=== PATIENT | male | born 1950 | race Caucasian/White ===

== ENCOUNTER → 2017-03-31 | Outpatient (CLI) | payer OTHER ==
--- NOTE | 2017-03-31 10:01 | DIAGNOSTIC IMAGING REPORT ---
KIDNEY (ABDOMEN) WITHOUT HISTORY: 66 years-old Male LT KIDNEY MASS follow-up study to assess a left renal mass. COMPARISON: No comparison study is available at time of dictation. TECHNIQUE: Multiple axial CT images of the abdomen were obtained without contrast. A dose lowering technique was used consistent with the principals of JONATHAN. FINDINGS: Mild bibasilar atelectasis. Small left Bochdalek hernia. There is no pneumoperitoneum or pneumatosis identified. Imaged inferior cardiac chambers are unremarkable. There are a few low attenuating lesions of the liver, largest of which measures 1.5 cm within segment VIII which suggests a hepatic cyst. No intrahepatic biliary ductal dilation. There are layering gallstones within the gallbladder lumen. No CT evidence of acute cholecystitis. Spleen, pancreas and right adrenal gland are unremarkable. There is an indeterminate soft tissue attenuating nodule of the left adrenal gland, 1.1 x 1.0 cm which may reflect a lipid poor adenoma. 4 mm nonobstructing calculus is seen within the inferior pole right kidney. Mild bilateral perinephric stranding. There is a 4 x 3 x 4 mm calculus of the proximal right ureter just distal to the ureteropelvic junction which does not cause significant obstructive uropathy. There is a low attenuating 1.9 x 1.6 cm lesion of the interpolar left kidney which suggests a cyst. Evaluation however is mildly limited without the use of contrast. No suspicious lesions of the left kidney identified. The aorta is normal in course and caliber with mild atherosclerotic plaquing. No bulky adenopathy identified. Suspected small sliding-type hiatal hernia. There is no bowel obstruction. Moderate colonic diverticulosis. There are nonspecific inflammatory changes of the right lower quadrant mesentery abutting the iliacus musculature as seen on images 231 through 246 of series 3. Soft tissues are unremarkable. Bones appear intact. Remote right-sided rib fractures are noted. Endplate changes of the spine. IMPRESSION: 1. 4 x 3 x 3 mm calculus of the proximal right ureter is present without associated significant obstructive uropathy. Additional 4 mm nonobstructing calculus of the inferior pole right kidney. 2. Ovoid circumscribed low attenuating lesion of the interpolar left kidney measuring up to 1.9 cm suggests renal cyst. No suspicious renal mass lesions identified on this noncontrast study. 3. Nonspecific focal inflammatory changes of the right lower quadrant mesentery, only partially imaged. 4. Colonic diverticulosis without diverticulitis. 5. Cholelithiasis. 6. Soft tissue attenuating lesion of the left adrenal gland, 1.1 cm may reflect a lipid poor adenoma, however is indeterminate. The above report was generated using voice recognition software. It may contain grammatical, syntax or spelling errors. Electronically signed by: Cody Perry M.D. 03/31/2017 10:00 AM Dictated Date/Time: 03/31/2017 9:49 AM
== END | disposition home or self-care (01) ==
LOC: C.CTS 09:20
PROVIDERS: ATTEND Internal Medicine
DX: N20.2 Calculus of kidney with calculus of ureter (principal); N28.89 Other specified disorders of kidney and ureter; K57.30 Diverticulosis of large intestine without perforation or abscess without bleeding

== ENCOUNTER → 2017-04-10 | Outpatient (CLI) | payer OTHER ==
[2017-04-10 09:05] LABS: BLOOD UREA NITROGEN 27 mg/dl (7-18); BUN/CREATININE RATIO 14.9 (10-20); CARBON DIOXIDE 25 mmol/L (21-32); CHLORIDE 106 mmol/L (98-107); CREATININE 1.81 mg/dl (0.60-1.40); GLUCOSE 104 mg/dl (70-99); SODIUM 140 mmol/L (136-145)
== END ==
LOC: C.LABCC 08:17
PROVIDERS: ATTEND Internal Medicine
DX: R94.4 Abnormal results of kidney function studies (principal)

== ENCOUNTER → 2017-04-25 | Outpatient (CLI) | payer OTHER ==
[~2017-04-25] MED LIST: ACET325T96 PO; ASPI81TA28 PO; ATOR-54 PO; BISA10SU5 PR; CRD200 PO; FAMO20TA12 PO; INSU100I SQ; LACTTAB7 PO; LEVO25TA5 PO; LISI-729 PO; LPR50X PO; MOML PO; QUET1TAB32 PO
[2017-04-25 08:44] LABS: BLOOD UREA NITROGEN 25 mg/dl (7-18); CALCIUM 8.6 mg/dl (8.5-10.1); CARBON DIOXIDE 23 mmol/L (21-32); CREATININE 1.52 mg/dl (0.60-1.40); GLUCOSE 80 mg/dl (70-99); POTASSIUM 4.1 mmol/L (3.5-5.1); SODIUM 140 mmol/L (136-145)
== END ==
LOC: C.LABCC 08:23 → EDSTATUS 05-02 11:38
PROVIDERS: ATTEND Internal Medicine
DX: N18.9 Chronic kidney disease, unspecified (principal)

== ENCOUNTER 2017-05-02 11:19 | Observation (INO) | payer OTHER ==
[~2017-05-02] VITALS: Ht 188 cm; Wt 97.6 kg
[~2017-05-02 11:19] MED LIST changes: -ACET325T96 PO; -ASPI81TA28 PO; -ATOR-54 PO; -BISA10SU5 PR; +CEFAZOLIN 1000MG IV PUSH 5 ML IV SCH; -CRD200 PO; -FAMO20TA12 PO; -INSU100I SQ; +LACTATED RINGER'S 1000ML IV SCH; -LACTTAB7 PO; -LEVO25TA5 PO; -LISI-729 PO; -LPR50X PO; -MOML PO; +PATIENT'S ALLERGY INFO NEEDS ENTERED SCH; +PATIENT'S HEIGHT AND/OR WEIGHT NEEDED SCH; -QUET1TAB32 PO
[2017-05-02 11:53] VITALS: BP 147/85; PULSE 47; TEMP 36.7; O2SAT 97; BMI 26.0
[2017-05-02] MEDS ORDERED: CRD200 PO (12:57)
[2017-05-02] MEDS ORDERED: ATOR-54 PO (12:57)
[2017-05-02] MEDS ORDERED: INSU100I SQ (12:57)
[2017-05-02] MEDS ORDERED: BISA10SU5 PR (12:57)
[2017-05-02] MEDS ORDERED: MOML PO (12:57)
[2017-05-02] MEDS ORDERED: LEVO25TA5 PO (12:57)
[2017-05-02] MEDS ORDERED: LISI-729 PO (12:57)
[2017-05-02] MEDS ORDERED: QUET1TAB32 PO (12:57)
[2017-05-02] MEDS ORDERED: FAMO20TA12 PO (12:57)
[2017-05-02] MEDS ORDERED: ACET325T96 PO (12:57)
[2017-05-02] MEDS ORDERED: ASPI81TA28 PO (12:57)
[2017-05-02] MEDS ORDERED: LACTTAB7 PO (12:57)
[2017-05-02] MEDS ORDERED: LPR50X PO (12:57)
[2017-05-02 13:03] LABS: PARTIAL THROMBOPLASTIN RATIO 0.9
[2017-05-02] MEDS ORDERED: FENTANYL CITRATE INJ 50 MCG/1 ML 2 ML VIAL ONE (13:03)
[2017-05-02] MEDS ORDERED: MIDAZOLAM HCL 5 MG/ML 1 ML VIAL ONE (13:03)
[2017-05-02] MEDS ORDERED: LIDOCAINE HCL 1% 20 ML VIAL ONE (13:04)
[2017-05-02] MEDS ORDERED: BACITRACIN 50000 UNIT VIAL ONE (13:04)
[2017-05-02] MEDS ORDERED: CEFAZOLIN 2000MG IV PUSH 10 ML IV SCH (13:15)
[2017-05-02] MEDS ORDERED: LACTATED RINGER'S 1000ML IV SCH (13:15)
--- NOTE | 2017-05-02 13:58 | History & Physical Bridge Note ---
H&P Re-Evaluation Bridge Note: I have examined the patient, reviewed the History & Physical and in the interval since the performance of the History & Physical I have noted the following changes of clinical significance: No changes noted. I reviewed the indications, procedure, risks and alternatives of device implantation with him and his legal guardian and they understand and agree to proceed. I also discussed the risks of anesthesia with them. Consent obtained from the patient' s legal guardian, the patient also agrees to proceed. We are planning single- chamber ICD implantation.
--- NOTE | 2017-05-02 14:00 | Procedure Note ---
Pre-Mod Sedation Assessment General Date of Moderate Sedation: May 02, 2017. Vital Signs: Vital Signs Past 12 Hours Date Time Temp Pulse Resp B/P (MAP) Pulse Ox O2 Delivery O2 Flow Rate FiO2 05/02/17 11:53 36.7 47 18 147/85 (105) 97 Room Air Review Cardiovascular: regular rate, rhythm Abdomen: normal bowel sounds Lungs: lungs clear Airway Class: II Pre-Sedation Airway Assessment Oral Cavity: WNL Short Thick Neck: No Hx of Sleep Apnea: No Smoking Status: Former Smoker Mallampati Classification: Class II ASA Classification: Class III Procedure Planning Contraindications-for Mod Sed: None Yes Notes The planned sedation has been discussed with the patient and consent obtained. I have identified the patient, determined the appropriateness of sedation and have assessed the patient immediately prior to the procedure. All medicine(s) and interventions are by my order.
[2017-05-02] MEDS ORDERED: BACITRACIN OINT 0.9 GM PKT ONE (15:10)
--- NOTE | 2017-05-02 15:24 | [facility] Operative Report ---
Operative Report Operative Date May 02, 2017. Pre-Operative Diagnosis Resuscitated sudden cardiac , cardiomyopathy Post-Operative Diagnosis same Procedure(s) Performed Single-chamber ICD implantation Defibrillator threshold testing Surgeon Dr. Varela Beef Grinder Surgeon(s) none Estimated Blood Loss 20 cc Findings Good lead position, good measurements. DFT less than 20 J Specimens None Anesthesia local with sedation Complication(s) None Disposition PCU Description of Procedure After obtaining informed consent for the procedure, the patient was brought to the laboratory and prepped and draped in the standard sterile manner. The left prepectoral region was anesthetized with 1% lidocaine local anesthetic and left axillary venipuncture was performed by percutaneous technique and a guidewire placed through the left subclavian vein into the superior vena cava. The area was further infiltrated with 1% lidocaine local anesthetic and a 7 cm incision was made parallel to the left clavicle and 2 cm below it and carried down to the anterior pectoralis fascia. An ICD pocket was formed by blunt dissection anterior to the pectoralis fascia and a bacitracin-soaked sponge (50,000 units in 50 cc normal saline solution) was placed in the pocket. A 10.5 [place] Medtronic lead introducer was placed over the guidewire into the left subclavian vein, the dilator and guidewire were removed and a bipolar dual coil active fixation steroid tipped ventricular ICD lead was advanced through the introducer into the superior vena cava. A guidewire was placed through the introducer and the introducer was stripped from the lead and guidewire. Using a curved stylette the ventricular lead was advanced through the right ventricular outflow tract into the pulmonary artery and then using a straight stylette was positioned in the right ventricular apex. The screw was extended fixing the lead in position. Pacing and sensing thresholds were evaluated in bipolar configuration and are recorded on the implant data sheet. Once the lead was in position it was attached to the anterior pectoralis fascia using 2 sutures of 2-0 silk around the lead collar. The bacitracin-soaked sponge was removed from the pocket, hemostasis was obtained, the ICD was attached to the lead and placed in the pocket with the lead coiled beneath it. The incision was closed with a running double subcutaneous closure of 3-0 Vicryl absorbable suture, followed by running subcuticular skin closure of 4-0 Vicryl absorbable suture. Bacitracin ointment was placed on the incision and a pressure dressing applied. During closure of the incision defibrillator threshold testing was performed. Ventricular fibrillation was induced with 50 Hz burst pacing, the rhythm was converted with a single 20 J biphasic shock. I attest to the content of the Intraoperative Record and any orders documented therein. Any exceptions are noted below.
--- NOTE | 2017-05-02 15:29 | Procedure Note ---
Post-Mod Sedation Assessment General Date of Moderate Sedation May 02, 2017. Vital Signs: Vital Signs Past 12 Hours Date Time Temp Pulse Resp B/P (MAP) Pulse Ox O2 Delivery O2 Flow Rate FiO2 05/02/17 11:53 36.7 47 18 147/85 (105) 97 Room Air Review - Discharge Criteria Vital Signs Stable: Yes Alert/Oriented/Conversant: Yes Returned to Baseline Mental St: Yes Nausea Absent/Minimal: Yes Pain/Discomfort/Absent/Minimal: Yes Normal/Baseline Respirations: Yes Active Bleeding?: No
[2017-05-02] MEDS ORDERED: KETOROLAC TROMETHAMINE 10 MG TAB PO PRN (15:30)
[2017-05-02] MEDS ORDERED: MAGNESIUM HYDROXIDE SUSP 30 ML UDC PO PRN (15:30)
[2017-05-02] MEDS ORDERED: ACETAMINOPHEN 325 MG TAB PO PRN (15:30)
[2017-05-02] MEDS ORDERED: CEFAZOLIN IV 1,000 MG in DEXTROSE 5% 50ML 50 ML IV SCH (15:30)
[2017-05-02 15:45] VITALS: BP_SYST 117; BP_SYST 144; BP_DIAS 74; BP_DIAS 87; PULSE 49; PULSE 51; TEMP 36.3; O2SAT 94; O2SAT 95; Ht 188 cm; Wt 97.6 kg
[2017-05-02] MEDS ORDERED: IV FLUIDS COMPLETED PRN (15:45)
[2017-05-02] MEDS ORDERED: PHARMACY GLYCEMIC MGMT CONSULT PRN (15:45)
[2017-05-02 15:55] VITALS: BP 141/90; PULSE 51; TEMP 36.3; O2SAT 95
[2017-05-02] MEDS ORDERED: DEXTROSE 50% 50 ML SYR IV PRN (16:00)
[2017-05-02] MEDS ORDERED: GLUCAGON FOR INJ 1 MG VIAL SQ PRN (16:00)
[2017-05-02] MEDS ORDERED: GLUCOSE 10 TABS/TUBE PO PRN (16:00)
[2017-05-02] MEDS ORDERED: GLUCOSE 40% GEL 15 GM TUBE PO PRN (16:00)
[2017-05-02] MEDS: INSULIN ASPART 100 UNITS/ML 3 ML PEN SC SCH ×2 (16:15→21:00)
[2017-05-02 16:17] VITALS: BP 144/87; PULSE 49; O2SAT 94
[2017-05-02 18:59] VITALS: BP 158/75; PULSE 53; TEMP 36.5; O2SAT 96
[2017-05-02] MEDS: METOPROLOL TARTRATE 50 MG TAB PO SCH (21:00)
[2017-05-02] MEDS: AMIODARONE 200 MG TAB PO SCH (21:00)
[2017-05-02] MEDS: CEFAZOLIN IV 2,000 MG in SYRINGE 0 ML IV SCH (21:33)
[2017-05-02] MEDS: FAMOTIDINE 20 MG TAB PO SCH (21:33)
[2017-05-02] MEDS: QUETIAPINE FUMARATE 25 MG TAB PO SCH (21:33)
[2017-05-02 23:31] VITALS: BP 168/95; PULSE 52; TEMP 36.6; O2SAT 96
[2017-05-03 03:09] VITALS: BP 127/74; PULSE 76; TEMP 36.6; O2SAT 98
[2017-05-03] MEDS ORDERED: LEVOTHYROXINE 50 MCG TAB PO SCH (06:00)
[2017-05-03] MEDS: CEFAZOLIN IV 2,000 MG in SYRINGE 0 ML IV SCH ×2 (06:13→12:00)
--- NOTE | 2017-05-03 07:20 | DIAGNOSTIC IMAGING REPORT ---
CHEST 2 VIEWS ROUTINE CLINICAL HISTORY: Evaluate for pneumothorax and lead placement. COMPARISON STUDY: No previous studies for comparison. FINDINGS: A single lead left subclavian pacer/AICD is in place. Lead tip projects over the right ventricle. Mild cardiomegaly is noted without evidence of pulmonary edema. There is no pneumothorax. No consolidation is identified. There are multiple subacute to chronic right-sided rib fractures. IMPRESSION: No pneumothorax following placement of a left subclavian pacer/AICD. Electronically signed by: Tapan Dominguez M.D. 05/03/2017 7:19 AM Dictated Date/Time: 05/03/2017 7:09 AM
[2017-05-03] MEDS: AMIODARONE 200 MG TAB PO SCH (07:52)
[2017-05-03] MEDS: FAMOTIDINE 20 MG TAB PO SCH (07:53)
[2017-05-03] MEDS: METOPROLOL TARTRATE 50 MG TAB PO SCH (07:53)
[2017-05-03] MEDS: QUETIAPINE FUMARATE 25 MG TAB PO SCH (07:53)
[2017-05-03] MEDS: INSULIN ASPART 100 UNITS/ML 3 ML PEN SC SCH ×2 (07:55→12:02)
--- NOTE | 2017-05-03 08:44 | Discharge Instructions ---
Discharge Instructions Date of Service May 03, 2017. Admission Cardiomyopathy Discharge Discharge Diagnosis / Problem: Single-chamber ICD implantation Discharge Goals Goal(s): Improve disease control Activity Recommendations Activity Limitations: as noted below . Instructions / Follow-Up Instructions / Follow-Up ACTIVITY RECOMMENDATIONS: * Do not raise affected arm over head for 2 weeks. SPECIAL CARE INSTRUCTIONS: * If bleeding occurs, apply direct pressure to area for 5 minutes. * Call your doctor if you have severe pain, fever, drainage or bleeding at site. * Keep dressing on and dry for 48 hours then remove. * Keep any scheduled doctor's appointment. * Implant Card - hand held device with website information given. SKIN IRRITATION: * You may experience some redness and/or swelling in the area where radiation was administered. If any skin irritation occurs, please contact your family physician. FOLLOW UP VISIT: 05/05/2017 @ 10:30 am for incision check 06/07/2017 @ 12:30 pm for device check Current Hospital Diet Patient's current hospital diet: AHA Diet (Heart Healthy) Discharge Diet Recommended Diet: AHA Diet (Heart Healthy) Pending Studies Studies pending at discharge: no Laboratory Results Hemoglobin A1c Test 03/16/17 04:40 Range/Units Estimated Average Glucose 128 mg/dl Hemoglobin A1c 6.1 H 4.5-5.6 % Lipid Panel Test 03/16/17 04:40 Range/Units Triglycerides Level 131 0-150 mg/dl Cholesterol Level 98 0-200 mg/dl HDL Cholesterol 33 mg/dl Cholesterol/HDL Ratio 3.0 LDL Cholesterol, Calculated 39 mg/dl Medical Emergencies . Who to Call and When: Medical Emergencies: If at any time you feel your situation is an emergency, please call 911 immediately. . Non-Emergent Contact Non-Emergency issues call your: Primary Care Provider . . "Provider Documentation" section prepared by Rayna Torrez. . VTE Core Measure Inpt VTE Proph given/why not?: Treatment not indicated
--- NOTE | 2017-05-03 08:49 | Cardiology Follow-Up ---
Subjective Date of Service: May 03, 2017. Pt evaluation today including: conversation w/ patient, physical exam, lab review, review of studies, review of inpatient medication list History of Present Illness Patient feels well now, he has no complaints other than minor incisional discomfort. Social History Smoking Status: Former Smoker History of Alcohol Use: No Review of Systems Respiratory: No shortness of breath Cardiac: No chest pain Objective Vital Signs Past 12 Hours Date Time Temp Pulse Resp B/P (MAP) Pulse Ox O2 Delivery O2 Flow Rate FiO2 05/03/17 04:00 Room Air 05/03/17 03:09 36.6 76 18 127/74 (91) 98 Room Air 05/03/17 00:01 Room Air 05/02/17 23:31 36.6 52 17 168/95 (119) 96 Room Air Last Recorded Weight-Kilograms: 97.600 Physical Exam Constitutional: Level of Distress: NAD Lungs: Auscultation: breath sounds normal Cardiovascular: Heart Auscultation: RRR, no rubs Extremities: no edema Incision is clean and dry, no hematoma or erythema. Data Laboratory Results: Last 24 Hours Test 05/02/17 12:26 05/02/17 12:40 05/02/17 16:04 05/02/17 20:06 Bedside Glucose 83 mg/dl 74 mg/dl 90 mg/dl Prothrombin Time 11.0 SECONDS Prothromb Time International Ratio 1.0 Activated Partial Thromboplast Time 24.5 SECONDS Partial Thromboplastin Ratio 0.9 Test 05/03/17 06:45 Bedside Glucose 89 mg/dl Imaging: Chest x-ray shows good lead position, no pneumothorax EKG: Sinus bradycardia with appropriate ICD inhibition Telemetry reviewed: Sinus bradycardia, no significant pacing ICD evaluation: Functioning well with excellent pacing and sensing characteristics. Assessment and Plan #1. Postop day number one ICD placement: Doing well, the site looks good, the device is working well. Stable for discharge after last dose of antibiotics.
[2017-05-03 08:55] VITALS: BP_SYST 152; BP_DIAS 105; BP_DIAS 86; PULSE 57; TEMP 37; O2SAT 95
--- NOTE | 2017-05-03 08:58 | Discharge Summary ---
Discharge Summary Admission Date: May 02, 2017 at 15:27 Discharge Date: May 03, 2017 Discharge Disposition: halfway facility Primary Diagnosis: Cardiomyopathy Procedures: Single-chamber ICD implantation Defibrillator threshold testing Discharge Instructions Last Recorded Wt (Kilograms): 97.600 Activity Recommendations: limitations as noted below Diet At Discharge: resume previous diet Allergies: Coded Allergies: No Known Allergies (Unverified , 05/02/17) Additional Instructions: ACTIVITY RECOMMENDATIONS: * Do not raise affected arm over head for 2 weeks. SPECIAL CARE INSTRUCTIONS: * If bleeding occurs, apply direct pressure to area for 5 minutes. * Call your doctor if you have severe pain, fever, drainage or bleeding at site. * Keep dressing on and dry for 48 hours then remove. * Keep any scheduled doctor's appointment. * Implant Card - hand held device with website information given. SKIN IRRITATION: * You may experience some redness and/or swelling in the area where radiation was administered. If any skin irritation occurs, please contact your family physician. FOLLOW UP VISIT: Keep any scheduled doctor appointments. Special Care: Call your doctor if: * Temperature above 101 degrees * Pain not relieved by pain medicine ordered * There is increased drainage or redness from any incision * You have any unanswered questions or concerns. Avoid all tobacco products. If you need help to stop smoking, call [place]'s FREE QUITLINE at . This is a free call. Admission HPI Patient is 66-year-old gentleman with history of nonischemic cardiomyopathy and cardiac arrest. This occurred in November of 2016. He had an extended period rehabilitation and is currently residing at [facility]. He presents to clinic today for routine follow-up and is accompanied by his sister. In generally claims to be feeling well. His main complaint is expressive aphasia. He has been ambulating and become more active over the past few weeks. He reports walking without symptoms of dyspnea and even jogging on occasion. He denies overt dizziness or lightheadedness. He denies orthopnea or paroxysmal nocturnal dyspnea. He claims that his appetite is improving and he is eating better. He denies any significant lower extremity edema. He is not aware of any palpitations. He has not suffered syncope. Admission Physical Exam Additional Comments: The patient is alert and oriented. Mood and affect appeared normal. He answered all questions appropriately. Very mild expressive aphasia HEENT: Pupils are equal and reactive to light and accommodation. Extraocular movements are intact. The sclerae are anicteric. Neuro: Cranial nerves intact Neck: Patient's neck is supple. He has palpable carotid pulses bilaterally without bruits on auscultation. There is no evidence of jugular venous distention. The thyroid is not enlarged. Lungs: Clear to auscultation bilaterally. He has good air movement without use of accessory muscles. No rales wheezes or rhonchi. Cardiac: Heart demonstrates a regular rate and rhythm. Normal S1 and S2. No murmurs on examination. Pulses: The patient has palpable radial pulses bilaterally that are equal in intensity Extremities: There was no evidence of hypoperfusion. There is no cyanosis or clubbing. There is no edema. Skin: I did not appreciate any rashes on examination today. Hospital Course Patient is a 66-year-old male with a presumed nonischemic cardiomyopathy and history of cardiac arrest who underwent single-chamber ICD implantation on 05/[address] Varela. He tolerated the procedure well. Device check the following day showed excellent sensing and pacing characteristics. CXR showed good lead placement and no evidence of pneumothorax. He was deemed stable for discharge on 05/03/2017. He will have follow-up in 2 days for incision check and in 1 month for device check. Total time spent on discharge = This includes examination of the patient, discharge planning, medication reconciliation, and communication with other providers.
[2017-05-03] MEDS ORDERED: ATORVASTATIN 20 MG TAB PO SCH (09:00)
[2017-05-03] MEDS ORDERED: LISINOPRIL 2.5 MG TAB PO SCH (09:00)
[2017-05-03] MEDS ORDERED: ASPIRIN 81 MG ECTAB PO SCH (09:00)
[2017-05-03 11:43] VITALS: BP 144/92; PULSE 49; TEMP 36.9; O2SAT 95
[2017-05-03 12:13] VITALS: BP 144/92; PULSE 49; TEMP 36.9; O2SAT 95
== END 2017-05-03 13:01 ==
LOC: C.ACU 11:19 → ENRESERV 14:56 → C.2T 15:27
PROVIDERS: ADMIT Internal Medicine Cardiovascular Disease; ATTEND Internal Medicine Cardiovascular Disease
DX: I42.9 Cardiomyopathy, unspecified (principal); I50.22 Chronic systolic (congestive) heart failure; Z86.74 Personal history of sudden cardiac arrest; I48.0 Paroxysmal atrial fibrillation; I34.0 Nonrheumatic mitral (valve) insufficiency; I10 Essential (primary) hypertension; I44.7 Left bundle-branch block, unspecified; Z79.01 Long term (current) use of anticoagulants; Z90.89 Acquired absence of other organs; Z93.0 Tracheostomy status

== ENCOUNTER → 2017-06-14 | Outpatient (CLI) | payer OTHER ==
[~2017-06-14] MED LIST changes: +ACET325T96 PO; +ASPI81TA28 PO; +ATOR-54 PO; +BISA10SU5 PR; -CEFAZOLIN 1000MG IV PUSH 5 ML IV SCH; +CRD200 PO; +FAMO20TA12 PO; +INSU100I SQ; -LACTATED RINGER'S 1000ML IV SCH; +LACTTAB7 PO; +LEVO25TA5 PO; +LISI-729 PO; +LPR50X PO; +MOML PO; -PATIENT'S ALLERGY INFO NEEDS ENTERED SCH; -PATIENT'S HEIGHT AND/OR WEIGHT NEEDED SCH; +QUET1TAB32 PO
[2017-06-14 10:21] LABS: BLOOD UREA NITROGEN 20 mg/dl (7-18); CALCIUM 8.8 mg/dl (8.5-10.1); CARBON DIOXIDE 26 mmol/L (21-32); CREATININE 1.77 mg/dl (0.60-1.40); GLUCOSE 98 mg/dl (70-99); SODIUM 137 mmol/L (136-145)
== END ==
LOC: C.LABCC 09:07
PROVIDERS: ATTEND Internal Medicine
DX: E78.5 Hyperlipidemia, unspecified (principal); I42.9 Cardiomyopathy, unspecified

== ENCOUNTER → 2017-07-12 | Outpatient (CLI) | payer OTHER ==
[~2017-07-12] MED LIST changes: +ACET-1693 PO; -ACET325T96 PO
[2017-07-12 10:17] LABS: BLOOD UREA NITROGEN 38 mg/dl (7-18); CALCIUM 9.1 mg/dl (8.5-10.1); CARBON DIOXIDE 26 mmol/L (21-32); CREATININE 2.08 mg/dl (0.60-1.40); GLUCOSE 124 mg/dl (70-99); POTASSIUM 4.2 mmol/L (3.5-5.1); SODIUM 138 mmol/L (136-145)
--- NOTE | 2017-07-15 06:59 | CODING QUERY NO DIAGNOSIS ---
TREATMENT RENDERED WITHOUT A DIAGNOSIS To promote full compliance with coding requirements relating to patient care, physician participation is requested in all cases of sales department supervisor uncertainty. Please assist us with providing a diagnosis/symptom for the test(s) below: A diagnosis/symptom was not documented on your Order. A valid diagnosis/symptom is required to bill all insurances. Please remember that we are unable to code a diagnosis of rule out, probable, possible, questionable, or suspected. Tests that require a diagnosis: DOS: 07/12/17 * PRP DIAGNOSIS: Provider Signature: Date: Thank you Yue [facility] Information Management Once completed, please kindly fax back to [phone] For questions please call [phone]
== END | disposition home or self-care (01) ==
LOC: C.LABSPEC 09:30
PROVIDERS: ATTEND Internal Medicine Clinical Cardiac Electrophysiology
DX: I50.22 Chronic systolic (congestive) heart failure (principal)

== ENCOUNTER → 2017-07-26 | Outpatient (CLI) | payer OTHER ==
[2017-07-26 11:20] LABS: ALBUMIN 3.2 gm/dl (3.4-5.0); BLOOD UREA NITROGEN 33 mg/dl (7-18); CALCIUM 8.7 mg/dl (8.5-10.1); CARBON DIOXIDE 27 mmol/L (21-32); CREATININE 1.97 mg/dl (0.60-1.40); GLUCOSE 79 mg/dl (70-99); SODIUM 141 mmol/L (136-145)
[2017-07-26 11:31] LABS: PHOSPHORUS 3.4 mg/dl (2.5-4.9)
--- NOTE | 2017-08-02 09:29 | CODING QUERY MEDICAL NECESSITY ---
SUPPORTING DIAGNOSIS NEEDED A supporting diagnosis is required for the test/procedure performed on this patient in order for us to be reimbursed by the patient's insurance. Please provide a supporting diagnosis for the following test/procedure listed below next to the test name along with your signature. *If there is no additional diagnosis for this patient that would support the following test/procedure please document that below next to the test/procedure. Test(s)/Procedure(s) that require a supporting diagnosis: DOS: 07/26/17 * HEMOGLOBIN A1C DIAGNOSIS: * RENAL PROFILE DIAGNOSIS: * TSH DIAGNOSIS: Provider Signature: Date: Thank you Stella Jackson [employer] Information Management Once completed, please kindly fax back to [phone] For questions please call [phone]
== END | disposition home or self-care (01) ==
LOC: C.LABSPEC 10:28
PROVIDERS: ATTEND Internal Medicine
DX: E11.9 Type 2 diabetes mellitus without complications (principal); E03.9 Hypothyroidism, unspecified

== ENCOUNTER → 2017-08-09 | Outpatient (CLI) | payer OTHER ==
[2017-08-09 10:22] LABS: BLOOD UREA NITROGEN 35 mg/dl (7-18); CALCIUM 8.9 mg/dl (8.5-10.1); CARBON DIOXIDE 26 mmol/L (21-32); CREATININE 1.92 mg/dl (0.60-1.40); GLUCOSE 72 mg/dl (70-99); POTASSIUM 4.2 mmol/L (3.5-5.1); SODIUM 140 mmol/L (136-145)
--- NOTE | 2017-08-18 10:47 | CODING QUERY NO DIAGNOSIS ---
TREATMENT RENDERED WITHOUT A DIAGNOSIS To promote full compliance with coding requirements relating to patient care, physician participation is requested in all cases of peer support specialist uncertainty. Please assist us with providing a diagnosis/symptom for the test(s) below: A diagnosis/symptom was not documented on your Order. A valid diagnosis/symptom is required to bill all insurances. Please remember that we are unable to code a diagnosis of rule out, probable, possible, questionable, or suspected. Tests that require a diagnosis: DOS: 08/09/17 * PARTIAL RENAL PROFILE DIAGNOSIS: * TSH DIAGNOSIS: Provider Signature: Date: Thank you Stella Jackson [employer] Information Management Once completed, please kindly fax back to [phone] For questions please call [phone]
== END ==
LOC: C.LABSPEC 10:01
PROVIDERS: ATTEND Internal Medicine
DX: N18.9 Chronic kidney disease, unspecified (principal); E03.9 Hypothyroidism, unspecified

== ENCOUNTER → 2017-08-23 | Outpatient (CLI) | payer OTHER ==
[2017-08-23 09:04] LABS: ALBUMIN 3.1 gm/dl (3.4-5.0); ALT/SGPT 35 U/L (12-78); BLOOD UREA NITROGEN 31 mg/dl (7-18); CALCIUM 8.5 mg/dl (8.5-10.1); CARBON DIOXIDE 24 mmol/L (21-32); CREATININE 1.95 mg/dl (0.60-1.40); GLUCOSE 77 mg/dl (70-99); SODIUM 140 mmol/L (136-145)
[2017-08-23 09:15] LABS: ALKALINE PHOSPHATASE 107 U/L (45-117); AST/SGOT 24 U/L (15-37); TOTAL PROTEIN 6.2 gm/dl (6.4-8.2)
== END | disposition home or self-care (01) ==
LOC: C.LABSPEC 08:24
PROVIDERS: ATTEND Internal Medicine
DX: R06.00 Dyspnea, unspecified (principal)

== ENCOUNTER → 2017-09-13 | Outpatient (CLI) | payer OTHER ==
[2017-09-13 09:49] LABS: BLOOD UREA NITROGEN 31 mg/dl (7-18); CALCIUM 8.4 mg/dl (8.5-10.1); CARBON DIOXIDE 25 mmol/L (21-32); CREATININE 1.64 mg/dl (0.60-1.40); GLUCOSE 75 mg/dl (70-99); POTASSIUM 3.9 mmol/L (3.5-5.1); SODIUM 141 mmol/L (136-145)
== END | disposition home or self-care (01) ==
LOC: C.LABSPEC 08:23
PROVIDERS: ATTEND Internal Medicine
DX: Z01.89 Encounter for other specified special examinations (principal)